=== PATIENT | female | born 1980 | race Caucasian/White ===

== ENCOUNTER 2020-06-30 12:50 | Emergency (ER) | payer OTHER ==
[~2020-06-30] VITALS: Ht 149.9 cm; Wt 54.4 kg
[2020-06-30 12:58] VITALS: BP 174/100
[2020-06-30] MEDS ORDERED: XANAX XR1 MG (13:02)
[2020-06-30] MEDS ORDERED: ADDERALL 10 MG10 MG (13:02)
[2020-06-30] MEDS ORDERED: IBUPROFEN 800800 M1 PO (13:15)
[2020-06-30] MEDS ORDERED: DOXYCYCLINE 10100 MG PO (13:15)
[2020-06-30] MEDS ORDERED: NORCO5 PO (13:15)
[2020-06-30] MEDS ORDERED: CENTANY30 GM TOP (13:15)
== END 2020-06-30 13:23 | disposition home or self-care (01) ==
LOC: M.ERS 12:50
DX: S01.301A Unspecified open wound of right ear, initial encounter (principal); M32.9 Systemic lupus erythematosus, unspecified; X58.XXXA Exposure to other specified factors, initial encounter; Y93.89 Activity, other specified; Y92.89 Other specified places as the place of occurrence of the external cause; Y99.8 Other external cause status